=== PATIENT | female | born 1985 | race Caucasian/White ===

== ENCOUNTER 2018-03-11 14:15 | Emergency (ER) | payer OTHER ==
[~2018-03-11] VITALS: Ht 157.5 cm; Wt 65.8 kg
[~2018-03-11 14:15] MED LIST: ACYC800 PO; ALBIPROI INH; ALBU8HFA2 INH; ALBU90I INH; ALBU90OI; ALBU90OI INH; ALBUIS; AMOX500 PO; AZIT250 PO; AZIT500 PO; Bactrim 400-801 EACH PO; CITA20 PO; CRUTCH2 USE; CYCL10 PO; DILAUDID 11 MG/1 ML; DOC250 PO; FLUSAL2505; FLUSAL2505 IH; FLUSAL5005; FLUSAL5005 IH; HYDACE5 PO; HYDGUAL120 PO; IBUP800 PO; KETO30I IV; LEVFLO500 PO; MULVITMINE; MULVITMINE PO; ONDA4ODT IV; OXYACE5T PO; PENVK500 PO; PHENA200 PO; PRED10 PO; PRED20 PO; PREDNISONE PO; PROM25 PO; Pyridium200 MG PO; RANI150 PO; SINGULAIR; SULTRIDS PO; TOBR.3OPSO RIGHTEYE; YAZ; [UNRECOGNIZED DRUG - REMARK]
[2018-03-11] MEDS ORDERED: ALBU90OI INH (14:33)
[2018-03-11] MEDS ORDERED: BUDE6HFA INH (14:34)
[2018-03-11] MEDS ORDERED: Augmentin 875-1 EACH PO (16:53)
== END 2018-03-11 17:21 | disposition home or self-care (01) ==
LOC: ER 14:15
DX: S61.211A Laceration without foreign body of left index finger without damage to nail, initial encounter (principal); L08.9 Local infection of the skin and subcutaneous tissue, unspecified; Z79.899 Other long term (current) drug therapy; J45.909 Unspecified asthma, uncomplicated; F17.200 Nicotine dependence, unspecified, uncomplicated; W45.8XXA Other foreign body or object entering through skin, initial encounter
CPT/HCPCS: 73130; 90471; 90714; 99283

== ENCOUNTER 2018-03-21 16:36 | Emergency (ER) | payer OTHER ==
[~2018-03-21] VITALS: Ht 157.5 cm; Wt 63.5 kg
[~2018-03-21 16:36] MED LIST changes: +Augmentin 875-1 EACH PO; +BUDE6HFA INH; +HYDR1TAB94 PO
[2018-03-21] MEDS ORDERED: Bactrim Ds Tab1 EACH (17:03)
[2018-03-21] MEDS ORDERED: Bactrim Ds Tab1 EACH PO (17:09)
== END 2018-03-21 18:04 | disposition home or self-care (01) ==
LOC: ER 16:36
DX: L08.9 Local infection of the skin and subcutaneous tissue, unspecified (principal); B95.62 Methicillin resistant Staphylococcus aureus infection as the cause of diseases classified elsewhere; J45.909 Unspecified asthma, uncomplicated; F17.210 Nicotine dependence, cigarettes, uncomplicated; Z79.899 Other long term (current) drug therapy; Z79.51 Long term (current) use of inhaled steroids
CPT/HCPCS: 36415; 96365; 99283; J0878; J7030

== ENCOUNTER 2018-07-02 16:23 | Emergency (ER) | payer OTHER ==
[~2018-07-02] VITALS: Ht 157.5 cm; Wt 65.8 kg
[~2018-07-02 16:23] MED LIST changes: +Bactrim Ds Tab1 EACH; +Bactrim Ds Tab1 EACH PO
[2018-07-02] MEDS ORDERED: ALBU90OI61 INH (16:34)
[2018-07-02 19:04] LABS: BASOPHILS ABSOLUTE AUTO 0.05 K/mm3 (0.00-0.23); BASOPHILS PERCENT AUTO 0 % (0-2); EOSINOPHILS ABSOLUTE AUTO 0.22 K/mm3 (0.00-0.68); EOSINOPHILS PERCENT AUTO 2 % (0-6); Hematocrit 44.6 % (33.0-51.0); Hemoglobin 14.7 g/dL (11.5-16.0); IMMATURE GRAN ABSOLUTE AUTO 0.03 K/mm3 (0.00-0.10); IMMATURE GRAN PERCENT AUTO 0 % (0-1); LYMPHOCYTES ABSOLUTE AUTO 2.58 K/mm3 (0.84-5.20); LYMPHOCYTES PERCENT AUTO 22 % (21-46); MONOCYTES ABSOLUTE AUTO 0.51 K/mm3 (0.16-1.47); MONOCYTES PERCENT AUTO 4 % (4-13); Mean Corpuscular HGB 29.8 pg (26.0-34.0); Mean Corpuscular Volume 91 fL (80-100); Mean Platelet Volume 10.1 fL (9.1-12.4); NEUTROPHILS ABSOLUTE AUTO 8.33 K/mm3 (1.96-9.15); NEUTROPHILS PERCENT AUTO 71 % (41-73); Platelet Count 373 K/mm3 (150-400); RDW Coefficient Variation 12.6 % (11.7-14.2); RDW Standard Deviation 41.6 fL (35.1-46.3); Red Blood Cell Count 4.93 M/mm3 (3.80-5.20); White Blood Cell Count 11.72 K/mm3 (4.00-11.30)
[2018-07-02 19:26] LABS: Alanine Aminotransfer (ALT/SGP 22 U/L (12-78); Albumin, Blood 4.1 g/dL (3.4-5.0); Albumin/Globulin Ratio 0.9 (0.8-1.8); Alk Phos 92 U/L (50-136); Anion Gap 8 mmol/L (6-16); Aspartate Aminotrans (AST/SGOT 15 U/L (12-37); Bilirubin, Total 0.5 mg/dL (0.1-1.0); Blood Urea Nitrogen 9 mg/dL (8-24); CO2, Blood 23 mmol/L (21-32); Calcium, Blood 9.4 mg/dL (8.5-10.1); Chloride, Blood 109 mmol/L (98-108); Creatinine, Blood 0.69 mg/dL (0.40-1.00); Globulin, Blood 4.4 g/dL (2.2-4.0); Glomerular Filtration Rate >60 (60-); Glucose, Blood 87 mg/dL (70-99); Sodium, Blood 140 mmol/L (136-145); Total Protein, Blood 8.5 g/dL (6.4-8.2)
[2018-07-02] MEDS ORDERED: Zofran Odt4 MG SL (20:07)
== END 2018-07-02 20:13 | disposition home or self-care (01) ==
LOC: ER 16:23
PROVIDERS: Emergency Medicine
DX: K80.20 Calculus of gallbladder without cholecystitis without obstruction (principal); J45.909 Unspecified asthma, uncomplicated; F17.200 Nicotine dependence, unspecified, uncomplicated; Z79.51 Long term (current) use of inhaled steroids
CPT/HCPCS: 36415; 74176; 80053; 81000; 81025; 85025; 99284-25

== ENCOUNTER 2019-02-10 10:12 | Emergency (ER) | payer OTHER ==
[~2019-02-10] VITALS: Ht 157.5 cm; Wt 65.8 kg
[~2019-02-10 10:12] MED LIST changes: +ALBU90OI61 INH; +IBUP600 PO; +Norco 5-325 Ta1 EACH PO; +Zofran Odt4 MG SL
[2019-02-10] MEDS ORDERED: METH40 PO (10:22)
[2019-02-10 11:22] LABS: Influenza A Negative (NEGATIVE); Influenza B Negative (NEGATIVE)
[2019-02-10] MEDS ORDERED: PRED20 PO (11:47)
[2019-02-10] MEDS ORDERED: ALBU90OI INH (11:47)
[2019-02-10] MEDS ORDERED: BENZ100A PO (11:47)
[2019-02-10] MEDS ORDERED: Flonase 0.05% N16 GM (11:48)
[2019-02-10] MEDS ORDERED: Cheratussin AC118 ML PO (11:48)
== END 2019-02-10 12:07 | disposition home or self-care (01) ==
LOC: ER 10:12
PROVIDERS: Physician Assistant
DX: J45.909 Unspecified asthma, uncomplicated (principal); Z79.899 Other long term (current) drug therapy; F17.210 Nicotine dependence, cigarettes, uncomplicated
CPT/HCPCS: 71046; 87804; 94640; 99283-25

== ENCOUNTER 2019-09-30 10:56 | Emergency (ER) | payer OTHER ==
[~2019-09-30] VITALS: Ht 157.5 cm; Wt 74.8 kg
[~2019-09-30 10:56] MED LIST changes: +BENZ100A PO; +Cheratussin AC118 ML PO; +Flonase 0.05% N16 GM; +METH40 PO
[2019-09-30] MEDS ORDERED: CLON.1 (11:27)
[2019-09-30 11:42] LABS: BASOPHILS ABSOLUTE AUTO 0.08 K/mm3 (0.00-0.23); BASOPHILS PERCENT AUTO 1 % (0-2); EOSINOPHILS ABSOLUTE AUTO 0.86 K/mm3 (0.00-0.68); EOSINOPHILS PERCENT AUTO 13 % (0-6); Hematocrit 44.2 % (33.0-51.0); Hemoglobin 14.3 g/dL (11.5-16.0); IMMATURE GRAN ABSOLUTE AUTO 0.01 K/mm3 (0.00-0.10); IMMATURE GRAN PERCENT AUTO 0 % (0-1); LYMPHOCYTES ABSOLUTE AUTO 2.22 K/mm3 (0.84-5.20); LYMPHOCYTES PERCENT AUTO 33 % (21-46); MONOCYTES ABSOLUTE AUTO 0.48 K/mm3 (0.16-1.47); MONOCYTES PERCENT AUTO 7 % (4-13); Mean Corpuscular HGB 29.7 pg (26.0-34.0); Mean Corpuscular HGB Conc 32.4 g/dL (31.5-36.5); Mean Corpuscular Volume 92 fL (80-100); NEUTROPHILS ABSOLUTE AUTO 3.05 K/mm3 (1.96-9.15); NEUTROPHILS PERCENT AUTO 46 % (41-73); RDW Coefficient Variation 11.9 % (11.7-14.2); RDW Standard Deviation 39.9 fL (35.1-46.3); Red Blood Cell Count 4.81 M/mm3 (3.80-5.20)
[2019-09-30 12:00] LABS: Mean Platelet Volume 11.6 fL (9.1-12.4); Platelet Count 200 K/mm3 (150-400)
[2019-09-30 12:01] LABS: Alanine Aminotransfer (ALT/SGP 18 U/L (12-78); Albumin, Blood 3.3 g/dL (3.4-5.0); Albumin/Globulin Ratio 0.9 (0.8-1.8); Alk Phos 64 U/L (50-136); Anion Gap 5 mmol/L (6-16); Aspartate Aminotrans (AST/SGOT 20 U/L (12-37); Bilirubin, Total 0.3 mg/dL (0.1-1.0); Blood Urea Nitrogen 12 mg/dL (8-24); Bun/Creatinine Ratio 17.1 (12.0-20.0); CO2, Blood 24 mmol/L (21-32); Calcium, Blood 9.2 mg/dL (8.5-10.1); Chloride, Blood 112 mmol/L (98-108); Globulin, Blood 3.7 g/dL (2.2-4.0); Glomerular Filtration Rate >60 (60-); Glucose, Blood 89 mg/dL (70-99); Potassium, Blood 4.5 mmol/L (3.5-5.5); Sodium, Blood 141 mmol/L (136-145)
[2019-09-30] MEDS ORDERED: CITRATE OF MAG296 ML PO (13:05)
== END 2019-09-30 13:13 | disposition home or self-care (01) ==
LOC: ER 10:56
PROVIDERS: Emergency Medicine
DX: K59.00 Constipation, unspecified (principal); J45.909 Unspecified asthma, uncomplicated; F17.210 Nicotine dependence, cigarettes, uncomplicated; Z79.899 Other long term (current) drug therapy; Z87.442 Personal history of urinary calculi
CPT/HCPCS: 36415; 80053; 83605; 85025; 99283

== ENCOUNTER → 2020-03-16 | Outpatient (CLI) | payer OTHER ==
[~2020-03-16] MED LIST changes: +CITRATE OF MAG296 ML PO; +CLON.1
== END | disposition home or self-care (01) ==
LOC: LAB 17:50 → LAB SHORT 17:50
DX: L02.01 Cutaneous abscess of face (principal)
CPT/HCPCS: 87070; 87075; 87077; 87147; 87186; 87205

== ENCOUNTER → 2024-07-15 | Outpatient (CLI) | payer OTHER | LOC: LAB 13:20 → LAB SHORT 13:20 → PLD 13:20 | DX: R21 Rash and other nonspecific skin eruption (principal) | CPT/HCPCS: 88312 ==

== ENCOUNTER 2024-08-22 17:22 | Inpatient (IN) | payer OTHER ==
[~2024-08-22] VITALS: Ht 157.5 cm; Wt 65.0 kg
[2024-08-22 18:26] LABS: BASOPHILS ABSOLUTE AUTO 0.09 K/mm3 (0.00-0.23); BASOPHILS PERCENT AUTO 1 % (0-2); EOSINOPHILS ABSOLUTE AUTO 0.33 K/mm3 (0.00-0.68); EOSINOPHILS PERCENT AUTO 2 % (0-6); Hematocrit 45.4 % (33.0-51.0); Hemoglobin 15.1 g/dL (11.5-16.0); IMMATURE GRAN ABSOLUTE AUTO 0.09 K/mm3 (0.00-0.10); IMMATURE GRAN PERCENT AUTO 1 % (0-1); LYMPHOCYTES ABSOLUTE AUTO 1.01 K/mm3 (0.84-5.20); LYMPHOCYTES PERCENT AUTO 6 % (21-46); MONOCYTES ABSOLUTE AUTO 1.43 K/mm3 (0.16-1.47); MONOCYTES PERCENT AUTO 8 % (4-13); Mean Corpuscular HGB 28.8 pg (26.0-34.0); Mean Corpuscular HGB Conc 33.3 g/dL (31.5-36.5); Mean Corpuscular Volume 87 fL (80-100); Mean Platelet Volume 9.7 fL (9.1-12.4); NEUTROPHILS ABSOLUTE AUTO 15.49 K/mm3 (1.96-9.15); NEUTROPHILS PERCENT AUTO 84 % (41-73); Platelet Count 432 K/mm3 (150-400); RDW Coefficient Variation 13.1 % (11.7-14.2); RDW Standard Deviation 41.4 fL (35.1-46.3); Red Blood Cell Count 5.25 M/mm3 (3.80-5.20); White Blood Cell Count 18.44 K/mm3 (4.00-11.30)
[2024-08-22 18:49] LABS: Albumin, Blood 2.9 g/dL (3.4-5.0); Albumin/Globulin Ratio 0.5 (0.8-1.8); Bilirubin, Total 0.9 mg/dL (0.1-1.0); Calcium, Blood 9.4 mg/dL (8.5-10.1); Creatinine, Blood 0.89 mg/dL (0.40-1.00); Globulin, Blood 5.3 g/dL (2.2-4.0); Potassium, Blood 3.8 mmol/L (3.5-5.5); Total Protein, Blood 8.2 g/dL (6.4-8.2)
[2024-08-22] MEDS ORDERED: Vancomycin HCL 2,000 MG in NS 520 ML IV ONE (22:55)
[2024-08-22] MEDS ORDERED: NS 1,000 ML IV SCH (23:00)
[2024-08-22] MEDS ORDERED: Acetaminophen 500 MG Tab PO ONE (23:05)
[2024-08-22] MEDS ORDERED: Erythromycin 0.5% Opth Oint 1 gm BOTHEYES ONE (23:05)
[2024-08-22] MEDS ORDERED: Ibuprofen 600 MG Tab PO ONE (23:05)
[2024-08-22] MEDS ORDERED: FLU VACC TS2024-25(6MOS UP)/PF 45 MCG/0.5 ML SYRINGE IM SCH (23:45)
[2024-08-22] MEDS ORDERED: Ketorolac Tromethamine 30mg Vial IV PRN (23:45)
[2024-08-22] MEDS ORDERED: FentaNYL Citrate 50 MCG/ML 2 ML Injection IV PRN (23:45)
[2024-08-23] MEDS ORDERED: MethylPREDNISolone Sod Succ 125 MG Vial IV SCH
[2024-08-23] MEDS ORDERED: Ondansetron HCl 2 MG / ML 2ML Vial IV PRN (00:05)
[2024-08-23] MEDS ORDERED: NS 1,000 ML IV SCH (00:05)
[2024-08-23] MEDS ORDERED: Ampicillin Sod/Sulbactam Sod 3 GM in NS 100 ML IV SCH (00:18)
[2024-08-23 02:08] LABS: BASOPHILS ABSOLUTE AUTO 0.08 K/mm3 (0.00-0.23); BASOPHILS PERCENT AUTO 1 % (0-2); EOSINOPHILS ABSOLUTE AUTO 0.52 K/mm3 (0.00-0.68); EOSINOPHILS PERCENT AUTO 3 % (0-6); Hematocrit 40.2 % (33.0-51.0); Hemoglobin 13.3 g/dL (11.5-16.0); IMMATURE GRAN ABSOLUTE AUTO 0.12 K/mm3 (0.00-0.10); IMMATURE GRAN PERCENT AUTO 1 % (0-1); LYMPHOCYTES ABSOLUTE AUTO 1.44 K/mm3 (0.84-5.20); LYMPHOCYTES PERCENT AUTO 9 % (21-46); MONOCYTES ABSOLUTE AUTO 1.25 K/mm3 (0.16-1.47); MONOCYTES PERCENT AUTO 8 % (4-13); Mean Corpuscular HGB 28.8 pg (26.0-34.0); Mean Corpuscular HGB Conc 33.1 g/dL (31.5-36.5); Mean Corpuscular Volume 87 fL (80-100); NEUTROPHILS ABSOLUTE AUTO 13.22 K/mm3 (1.96-9.15); NEUTROPHILS PERCENT AUTO 80 % (41-73); Platelet Count 410 K/mm3 (150-400); RDW Coefficient Variation 13.1 % (11.7-14.2); RDW Standard Deviation 41.2 fL (35.1-46.3); Red Blood Cell Count 4.62 M/mm3 (3.80-5.20); White Blood Cell Count 16.63 K/mm3 (4.00-11.30)
[2024-08-23] MEDS ORDERED: Tobramycin/Dexameth Opth Susp 2.5 ML BOTHEYES SCH (02:41)
[2024-08-23 03:32] LABS: Albumin, Blood 2.8 g/dL (3.4-5.0); Albumin/Globulin Ratio 0.6 (0.8-1.8); Bilirubin, Total 0.7 mg/dL (0.1-1.0); Bun/Creatinine Ratio 19.7 (12.0-20.0); Calcium, Blood 8.7 mg/dL (8.5-10.1); Creatinine, Blood 0.91 mg/dL (0.40-1.00); Globulin, Blood 4.9 g/dL (2.2-4.0); Potassium, Blood 3.3 mmol/L (3.5-5.5); Total Protein, Blood 7.7 g/dL (6.4-8.2)
[2024-08-23] MEDS ORDERED: Potassium Chl 20MEQ/Water100ML 100 ML IV STA (06:51)
[2024-08-23] MEDS ORDERED: Enoxaparin 40 MG/0.4 ML SYR SC SCH (09:00)
[2024-08-23] MEDS ORDERED: Methadone HCL 10 MG TAB PO SCH (12:00)
[2024-08-23] MEDS ORDERED: Vancomycin HCL 1,000 MG in NS 250 ML IV SCH (14:00)
[2024-08-23 14:32] VITALS: BP 132/85
[2024-08-23] MEDS ORDERED: ALBU90OI INH ×2 (14:45)
[2024-08-23] MEDS ORDERED: NS 250 ML IV PRN (17:35)
[2024-08-23] MEDS ORDERED: Nicotine 21 MG PATCH TOP SCH (18:05)
[2024-08-23] MEDS ORDERED: OxyCODONE 5 mg/Acetamin 325 mg TABLET PO PRN (19:30)
[2024-08-23] MEDS ORDERED: LORazepam 0.5 MG Tab PO PRN (19:30)
[2024-08-23 19:44] VITALS: BP 120/73
--- NOTE | 2024-08-23 20:10 | NUR ---
SHIFT SUMMARY- PT ADMITTED THROUGH THE ED, ATTEMPTED TO CALL CONSULT REQUEST, DERMATOLOGY OFFICE CLOSED. PT, C/O PAIN ON ARRIVAL TO MED FLOOR MEDICATED WITH IV TORADOL WITH TASHA EFFECT, CALLED ABOUT A TOPICAL CREAM TO HELP WITH THE PAIN THE SKIN WAS WEEPING AND IS STARTING TO DRY IN PLACES. THE LOWER LAYERS ARE TIGHT AND SPLITTING CAUSING THE BURNING PAIN. RECIEVED ORDER FOR BACTROBAN OINTMENT. PT STATED THE PAIN WAS A LOT BETTER AFTER THE OINTMENT. WHEN DINNER ARRIVED AND SHE ATE FOOD THE MOVEMENT OF HER FACE CAUSED HER PAIN TO FLARE AGAIN. CALLED DR ACHARYA AND RECIEVED ORDER FOR PERCOCET AND SOMETHING FOR ANXIETY. NIGHT RN AWARE, ORDERS PLACED AT THE TIME OF REPORT. PT IN BED AT THE TIME OF BEDSIDE REPORT, SHE IS IN PAIN USING A COOL CLOTH TO HELP TO COOL THE BURNING OF HER FACE. CALLED DR ACHARYA AFTER BEDSIDE REPORT.
[2024-08-23] MEDS ORDERED: Lactobacil 2-S.Thermo-Bifido 1 1 Cap PO SCH (21:00)
[2024-08-23] MEDS ORDERED: Mupirocin 2% Ointment 22 GM TOP SCH (21:00)
[2024-08-24 02:35] VITALS: BP 131/91
[2024-08-24 06:40] LABS: BASOPHILS ABSOLUTE AUTO 0.06 K/mm3 (0.00-0.23); BASOPHILS PERCENT AUTO 0 % (0-2); EOSINOPHILS ABSOLUTE AUTO 0.04 K/mm3 (0.00-0.68); EOSINOPHILS PERCENT AUTO 0 % (0-6); Hematocrit 36.9 % (33.0-51.0); Hemoglobin 12.1 g/dL (11.5-16.0); IMMATURE GRAN ABSOLUTE AUTO 0.08 K/mm3 (0.00-0.10); IMMATURE GRAN PERCENT AUTO 0 % (0-1); LYMPHOCYTES ABSOLUTE AUTO 2.37 K/mm3 (0.84-5.20); LYMPHOCYTES PERCENT AUTO 13 % (21-46); MONOCYTES ABSOLUTE AUTO 1.33 K/mm3 (0.16-1.47); MONOCYTES PERCENT AUTO 8 % (4-13); Mean Corpuscular HGB 28.8 pg (26.0-34.0); Mean Corpuscular HGB Conc 32.8 g/dL (31.5-36.5); Mean Corpuscular Volume 88 fL (80-100); Mean Platelet Volume 9.9 fL (9.1-12.4); NEUTROPHILS ABSOLUTE AUTO 13.94 K/mm3 (1.96-9.15); NEUTROPHILS PERCENT AUTO 78 % (41-73); Platelet Count 451 K/mm3 (150-400); RDW Coefficient Variation 13.2 % (11.7-14.2); RDW Standard Deviation 42.5 fL (35.1-46.3); White Blood Cell Count 17.82 K/mm3 (4.00-11.30)
[2024-08-24 07:10] LABS: Bun/Creatinine Ratio 25.4 (12.0-20.0); Calcium, Blood 8.7 mg/dL (8.5-10.1); Creatinine, Blood 0.67 mg/dL (0.40-1.00); Potassium, Blood 3.3 mmol/L (3.5-5.5)
[2024-08-24] MEDS ORDERED: Mometasone/Formoterol MDI 200/5 mcg 13 GM INH SCH (07:40)
[2024-08-24] MEDS ORDERED: Albuterol HFA200 ACT/6.7 GM INH INH PRN (07:40)
[2024-08-24] MEDS ORDERED: Potassium Chl 20MEQ/Water100ML 100 ML IV STA (07:43)
--- NOTE | 2024-08-24 07:53 | NUR ---
SHIFT SUMMARY PT IS A&OX4, PLEASANT AND COOPERATIVE WITH CARES. VSS ON RA. PER TELEMETRY PT IS SR @ 87. C/O FACIAL PAIN MEDICATED WITH PRN 5 MG PERCOCET, AND 0.5 MG PO ATIVAN. PT IS ANXIOUS, AND STATES AT HOME SHE SMOKES MARIJUANA TO HELP WITH HER ANXIETY. TOLERATING A REG DIET, GOOD APPETITE. PT IS INDEPENDENT IN ROOM/BR. S.O. AT BEDSIDE T/O NOC, ATTENTIVE TO PT. CRITICAL LAB CAME BACK WITH POSITIVE BLOOD CULTURES. DR BRADLEY MADE AWARE. CONTACT PRECAUTIONS MAINTAINED FOR HX OF MRSA. BED IN LOWEST POSITION, CALL LIGHT WITHIN REACH.
[2024-08-24 08:26] VITALS: BP 121/84
[2024-08-24] MEDS ORDERED: Vancomycin HCL 1,000 MG in NS 250 ML IV SCH (10:30)
[2024-08-24] MEDS ORDERED: BREYNA 160-4.10.3 GM INH ×2 (15:15)
[2024-08-24 15:34] VITALS: BP 116/77
--- NOTE | 2024-08-24 16:09 | NUR ---
PT A/OX4, PLEASANT AND COOPERATIVE, UP IND IN HER ROOM. THE PT WAS MEDICATED FOR PAIN X2 SO FAR THIS SHIFT. PT WAS MEDICATED FOR ANXIETY X1. DR. LEONARD RETAIL LEASING AGENT WAS IN TO SEE THE PT TODAY WOUND CX'S WERE OBTAINED AND SENT TO LAB. PT HAS BEEN APPLYING BACTRAICIN OINTMENT TOLERATD TO HER FACE. PT HAS COURSE LUNG SOUNDS WITH A LOOSE COUGH. PT IS BREATHING EASILY ON RA AT THIS TIME. CALL LIGHT IN REACH.
[2024-08-24 19:54] VITALS: BP 114/89
[2024-08-24] MEDS ORDERED: ValACYClovir HCL 500 MG Tab PO SCH (20:00)
[2024-08-25 04:51] VITALS: BP 127/83
[2024-08-25 05:20] LABS: BASOPHILS PERCENT AUTO 1 % (0-2); EOSINOPHILS ABSOLUTE AUTO 0.42 K/mm3 (0.00-0.68); EOSINOPHILS PERCENT AUTO 5 % (0-6); Hematocrit 37.8 % (33.0-51.0); Hemoglobin 12.3 g/dL (11.5-16.0); IMMATURE GRAN ABSOLUTE AUTO 0.07 K/mm3 (0.00-0.10); IMMATURE GRAN PERCENT AUTO 1 % (0-1); LYMPHOCYTES ABSOLUTE AUTO 2.46 K/mm3 (0.84-5.20); LYMPHOCYTES PERCENT AUTO 30 % (21-46); MONOCYTES ABSOLUTE AUTO 0.76 K/mm3 (0.16-1.47); MONOCYTES PERCENT AUTO 9 % (4-13); Mean Corpuscular HGB 28.9 pg (26.0-34.0); Mean Corpuscular HGB Conc 32.5 g/dL (31.5-36.5); Mean Corpuscular Volume 89 fL (80-100); Mean Platelet Volume 10.1 fL (9.1-12.4); NEUTROPHILS ABSOLUTE AUTO 4.27 K/mm3 (1.96-9.15); NEUTROPHILS PERCENT AUTO 53 % (41-73); Platelet Count 426 K/mm3 (150-400); RDW Coefficient Variation 13.3 % (11.7-14.2); RDW Standard Deviation 43.6 fL (35.1-46.3); Red Blood Cell Count 4.25 M/mm3 (3.80-5.20); White Blood Cell Count 8.08 K/mm3 (4.00-11.30)
[2024-08-25 06:05] LABS: Calcium, Blood 8.7 mg/dL (8.5-10.1); Creatinine, Blood 0.7 mg/dL (0.40-1.00); Potassium, Blood 3.8 mmol/L (3.5-5.5)
--- NOTE | 2024-08-25 06:05 | NUR ---
SHIFT SUMMARY: PT IS ALERT AND ORIENTED. PT IS CALM AND COOPERATIVE WITH CARE. PT IS INDEPENDENT IN THE ROOM. PT CALLS APPROPRIATELY. PT REPORTS PAIN AND ANXIETY ON SEVERAL OCCASIONS, MEDICATING PER EMAR. PT DENIES NAUSEA, VOMITING, AND SOB. PT SLEPT MUCH OF THE NIGHT WHEN NOT DISTURBED. NO ACUTE CHANGES OR COMPLICATIONS THIS SHIFT. BED IN LOW POSITION, CALL LIGHT WITHIN REACH. WILL CONTINUE TO MONITOR.
[2024-08-25 07:21] VITALS: BP 112/71
[2024-08-25 10:31] LABS: Vancomycin, Trough 21.1 ug/mL (5.0-10.0)
[2024-08-25] MEDS ORDERED: Vancomycin HCL 750 MG in NS 250 ML IV SCH (11:00)
[2024-08-25] MEDS ORDERED: CeFAZolin Sodium 2,000 MG in NS 100 ML IV SCH (12:00)
[2024-08-25 14:32] VITALS: BP 115/79
--- NOTE | 2024-08-25 18:06 | NUR ---
END OF SHIFT SUMMARY: A&Ox4. PLEASANT AND COOPERATIVE WITH CARE. CALLS APPROPRIATELY AND IS ABLE TO ADVOCATE NEEDS EFFECTIVELY. AMBULATES INDEPENDENTLY WITHIN ROOM. CONTINENT OF BOWEL AND BLADDER. BM TODAY. MEDS WHOLE WITH FLUIDS. PAIN SIGNIFICANT IN LESIONS ON FACE, TRUNK AND EXTREMITIES. CRITICAL VANCO LEVEL RESULTING IN DOSE CHANGE. PATIENT REPORTS FEELING WELL TODAY. APPROPRIATE INTAKE AND OUTPUT. VSS. BED IN LOWEST POSITION. CALL LIGHT WITHIN REACH. ALL NEEDS MET. REPORT TO ONCOMING NURSE.
[2024-08-25 19:37] VITALS: BP 115/79
[2024-08-26 03:05] VITALS: BP 118/90
--- NOTE | 2024-08-26 04:22 | NUR ---
SHIFT SUMMARY PATIENT IS ALERT AND ORIENTED. PATIENT HAS BEEN COOPERATIVE AND PLEASANT WITH CARE. PATIENT HAS HAD NO ACUTE EVENTS THIS SHIFT. ABX INFUSED ORDERED. PATIENT REPORTS FACIAL LESIONS IMPROVING. PATIENT HAS REPORTED PAIN THIS SHIFT AND MEDICATED PER EMAR. PATIENTS PAIN HAS LESSENED THIS SHIFT PER PATIENT. PATIENT HAS HAD NO COMPLAINTS OF SOB, NAUSEA, OR VOMITTING THIS SHIFT. BED IN LOCKED AND LOWEST POSITION. CALL LIGHT IN PLACE. WILL MONITOR UNTIL SHIFT CHANGE.
[2024-08-26 06:42] LABS: BASOPHILS ABSOLUTE AUTO 0.08 K/mm3 (0.00-0.23); BASOPHILS PERCENT AUTO 1 % (0-2); EOSINOPHILS ABSOLUTE AUTO 0.46 K/mm3 (0.00-0.68); EOSINOPHILS PERCENT AUTO 3 % (0-6); Hematocrit 34.5 % (33.0-51.0); Hemoglobin 11.4 g/dL (11.5-16.0); IMMATURE GRAN ABSOLUTE AUTO 0.29 K/mm3 (0.00-0.10); IMMATURE GRAN PERCENT AUTO 2 % (0-1); LYMPHOCYTES ABSOLUTE AUTO 1.47 K/mm3 (0.84-5.20); LYMPHOCYTES PERCENT AUTO 11 % (21-46); MONOCYTES ABSOLUTE AUTO 0.45 K/mm3 (0.16-1.47); MONOCYTES PERCENT AUTO 3 % (4-13); Mean Corpuscular HGB 28.8 pg (26.0-34.0); Mean Corpuscular Volume 87 fL (80-100); Mean Platelet Volume 9.9 fL (9.1-12.4); NEUTROPHILS ABSOLUTE AUTO 10.61 K/mm3 (1.96-9.15); NEUTROPHILS PERCENT AUTO 79 % (41-73); Platelet Count 407 K/mm3 (150-400); RDW Coefficient Variation 12.7 % (11.7-14.2); RDW Standard Deviation 40.6 fL (35.1-46.3); Red Blood Cell Count 3.96 M/mm3 (3.80-5.20); White Blood Cell Count 13.36 K/mm3 (4.00-11.30)
[2024-08-26 07:07] LABS: Bun/Creatinine Ratio 23.1 (12.0-20.0); Calcium, Blood 8.2 mg/dL (8.5-10.1); Creatinine, Blood 0.69 mg/dL (0.40-1.00); Potassium, Blood 3.4 mmol/L (3.5-5.5)
[2024-08-26 08:17] VITALS: BP 121/78
[2024-08-26 10:59] LABS: Vancomycin, Trough 19.3 ug/mL (5.0-10.0)
[2024-08-26 15:15] VITALS: BP 131/83
--- NOTE | 2024-08-26 16:45 | NUR ---
SHIFT SUMMARY: PATIENT A/OX4, PLEASANT AND COOPERATIVE c CARE. PATIENT DENIES CP/PRESSURE, SOB, N/V AND DIZZINESS. PATIENT REPORTS PAIN TO FACE, MEDICATED PER EMAR c GOOD EFFECT. PATIENT RECEIVED IV ABX/SCHEDULED MEDS PER EMAR. PATIENT HAS GREAT APPETITE, CONTINENT OF BLADDER, AMBULATES TO BATHROOM INDEPENDENTLY T/O SHIFT. VITALS SIGNS REVIEWED. PATIENT HAS NO COMPLAINTS OR DENIES NEW CONCERNED THIS SHIFT. CALL LIGHT IN REACH.
[2024-08-26 19:26] VITALS: BP 106/70
[2024-08-27 04:27] VITALS: BP 125/80
--- NOTE | 2024-08-27 05:06 | NUR ---
SHIFT SUMMARY PATIENT IS ALERT AND ORIENTED. PATIENT HAS HAD NO ACUTE EVENTS THIS SHIFT. VITAL SIGNS REVIEWED. PATIENT HAS HAD PAIN IN FACIAL LESIONS THIS SHIFT. MEDICATED PER EMAR. PATIENT HAS HAD SOME ANXIETY THIS SHIFT AND MEDICATED PER EMAR. PATIENT HAS HAD NO SOB, NAUSEA, OR VOMITTING THIS SHIFT. PATIENT HAS SLEPT MOST OF SHIFT. BED IN LOCKED AND LOWEST POSITION. CALL LIGHT IN PLACE. WILL MONTIOR UNTIL SHIFT CHANGE.
[2024-08-27 06:06] LABS: BASOPHILS PERCENT AUTO 1 % (0-2); Bun/Creatinine Ratio 19.3 (12.0-20.0); Calcium, Blood 8.9 mg/dL (8.5-10.1); Creatinine, Blood 0.72 mg/dL (0.40-1.00); EOSINOPHILS ABSOLUTE AUTO 1.63 K/mm3 (0.00-0.68); EOSINOPHILS PERCENT AUTO 18 % (0-6); Hematocrit 38.9 % (33.0-51.0); Hemoglobin 13.1 g/dL (11.5-16.0); IMMATURE GRAN ABSOLUTE AUTO 0.16 K/mm3 (0.00-0.10); IMMATURE GRAN PERCENT AUTO 2 % (0-1); LYMPHOCYTES ABSOLUTE AUTO 2.15 K/mm3 (0.84-5.20); LYMPHOCYTES PERCENT AUTO 24 % (21-46); MONOCYTES ABSOLUTE AUTO 0.41 K/mm3 (0.16-1.47); MONOCYTES PERCENT AUTO 5 % (4-13); Mean Corpuscular HGB 29.2 pg (26.0-34.0); Mean Corpuscular HGB Conc 33.7 g/dL (31.5-36.5); Mean Corpuscular Volume 87 fL (80-100); NEUTROPHILS ABSOLUTE AUTO 4.65 K/mm3 (1.96-9.15); NEUTROPHILS PERCENT AUTO 51 % (41-73); NRBC ABSOLUTE 0.02 K/mm3 (0.00-0.02); NRBC Auto 0.2 /100 WBC (0.0-0.2); Platelet Count 428 K/mm3 (150-400); Potassium, Blood 4.5 mmol/L (3.5-5.5); RDW Coefficient Variation 12.8 % (11.7-14.2); RDW Standard Deviation 40.7 fL (35.1-46.3); Red Blood Cell Count 4.49 M/mm3 (3.80-5.20)
[2024-08-27 07:09] VITALS: BP 127/78
[2024-08-27 15:50] VITALS: BP 111/82
--- NOTE | 2024-08-27 16:27 | NUR ---
SHIFT SUMMARY: PATIENT HAS HAD NO NEW ACUTE CHANGES THIS SHIFT. PATIENT A/OX4, PLEASANT AND COOPERATIVE c CARE. PATIENT MEDICATED FOR PAIN AND ANXIETY PER EMAR c GOOD EFFECT. PATIENT RECEIVED IV ABX/SCHEDULED MEDS PER EMAR. PATIENT HAD SHOWER AND LINEN CHANGED THIS SHIFT. PATIENT HAS GREAT APPETITE, CONTINENT OF BLADDER, AMBULATES TO BATHROOM T/O SHIFT. VITAL SIGNS REVIEWED. CALL LIGHT IN REACH.
[2024-08-27 19:25] VITALS: BP 141/89
[2024-08-28 01:44] LABS: HSV 1 SUBTYPE BY PCR Not Detected; HSV 2 SUBTYPE BY PCR Not Detected; HSV SUBTYPE SOURCE FACE
--- NOTE | 2024-08-28 03:26 | NUR ---
SUMMARY- NO NEW ISSUES. PT DISCOMFORT MANAGED WELL. PT HAS BEEN RESTING COMFORTABLY. PT HAS BEEN EATING AND DRINKING. PT VOIDING WELL. CALL LIGHT IN REACH.
[2024-08-28 03:46] VITALS: BP 136/86
[2024-08-28] MEDS ORDERED: OxyCODONE 5 mg/Acetamin 325 mg TABLET PO PRN (07:45)
[2024-08-28 08:01] LABS: BASOPHILS ABSOLUTE AUTO 0.06 K/mm3 (0.00-0.23); BASOPHILS PERCENT AUTO 1 % (0-2); EOSINOPHILS ABSOLUTE AUTO 0.97 K/mm3 (0.00-0.68); EOSINOPHILS PERCENT AUTO 8 % (0-6); Hematocrit 39.9 % (33.0-51.0); Hemoglobin 13.5 g/dL (11.5-16.0); IMMATURE GRAN ABSOLUTE AUTO 0.13 K/mm3 (0.00-0.10); IMMATURE GRAN PERCENT AUTO 1 % (0-1); LYMPHOCYTES ABSOLUTE AUTO 2.19 K/mm3 (0.84-5.20); LYMPHOCYTES PERCENT AUTO 18 % (21-46); MONOCYTES ABSOLUTE AUTO 0.64 K/mm3 (0.16-1.47); MONOCYTES PERCENT AUTO 5 % (4-13); Mean Corpuscular HGB Conc 33.8 g/dL (31.5-36.5); Mean Corpuscular Volume 86 fL (80-100); Mean Platelet Volume 9.5 fL (9.1-12.4); NEUTROPHILS ABSOLUTE AUTO 8.13 K/mm3 (1.96-9.15); NEUTROPHILS PERCENT AUTO 67 % (41-73); Platelet Count 521 K/mm3 (150-400); RDW Coefficient Variation 12.9 % (11.7-14.2); RDW Standard Deviation 39.8 fL (35.1-46.3); Red Blood Cell Count 4.66 M/mm3 (3.80-5.20); White Blood Cell Count 12.12 K/mm3 (4.00-11.30)
[2024-08-28 08:10] VITALS: BP 139/88
[2024-08-28 08:17] LABS: Bun/Creatinine Ratio 20.9 (12.0-20.0); Calcium, Blood 9.3 mg/dL (8.5-10.1); Creatinine, Blood 0.67 mg/dL (0.40-1.00); Potassium, Blood 4.4 mmol/L (3.5-5.5)
[2024-08-28 15:18] LABS: VARICELLA-ZOSTER VIRUS BY PCR Not Detected; VARICELLA-ZOSTER VIRUS SOURCE FACE
[2024-08-28 15:30] VITALS: BP 116/78
--- NOTE | 2024-08-28 16:52 | NUR ---
SHIFT SUMMARY: PATIENT HAS NO NEW ACUTE CHANGES THIS SHIFT. PATIENT A/OX4, PLEASANT AND COOPERATIVE c CARE. PATIENT MEDICATED FOR PAIN AND ANXIETY PER EMAR c GOOD EFFECT. PATIENT RECEIVED IV ABX/SCHEDULED MEDS PER EMAR. PATIENT HAS GREAT APPETITE, CONTINENT OF BLADDER, AMBULATES TO BATHROOM T/O SHIFT. PATIENT EXPRESSESS WOULD LIKE TO GO HOME TOMORROW. PATIENT RESTING IN BED ON/OFF T/O SHIFT. VITAL SIGNS REVIEWED. CALL LIGHT IN REACH.
[2024-08-28 19:36] VITALS: BP 124/79
[2024-08-29 03:04] VITALS: BP 115/88
--- NOTE | 2024-08-29 06:06 | NUR ---
SHIFT SUMMARY: BETHANIE IS A&OX4. VSS, NO ACUTE EVENTS OVERNIGHT. SHE REPORTS MINIMAL PAIN MANAGEMENT WITH MEDICATIONS PER MAR, IS TOLERATING PO INTAKE WELL, AND IS INDEPENDENT IN THE ROOM. IV TO RIGHT UPPER ARM PATENT. SHE IS LYING IN BED WITH THE CALL LIGHT IN REACH, BED IN LOWEST POSITION. PT DENIES ANY DIFFICULTY WITH ELIMINATION. WILL GIVE REPORT TO DAY SHIFT RN.
[2024-08-29 06:17] LABS: BASOPHILS ABSOLUTE AUTO 0.09 K/mm3 (0.00-0.23); BASOPHILS PERCENT AUTO 1 % (0-2); EOSINOPHILS ABSOLUTE AUTO 0.63 K/mm3 (0.00-0.68); EOSINOPHILS PERCENT AUTO 6 % (0-6); Hematocrit 45.8 % (33.0-51.0); Hemoglobin 14.8 g/dL (11.5-16.0); IMMATURE GRAN ABSOLUTE AUTO 0.12 K/mm3 (0.00-0.10); IMMATURE GRAN PERCENT AUTO 1 % (0-1); LYMPHOCYTES ABSOLUTE AUTO 1.92 K/mm3 (0.84-5.20); LYMPHOCYTES PERCENT AUTO 18 % (21-46); MONOCYTES ABSOLUTE AUTO 0.57 K/mm3 (0.16-1.47); MONOCYTES PERCENT AUTO 5 % (4-13); Mean Corpuscular HGB 29.1 pg (26.0-34.0); Mean Corpuscular HGB Conc 32.3 g/dL (31.5-36.5); Mean Corpuscular Volume 90 fL (80-100); NEUTROPHILS ABSOLUTE AUTO 7.58 K/mm3 (1.96-9.15); NEUTROPHILS PERCENT AUTO 70 % (41-73); RDW Coefficient Variation 13.2 % (11.7-14.2); RDW Standard Deviation 43.1 fL (35.1-46.3); Red Blood Cell Count 5.08 M/mm3 (3.80-5.20); White Blood Cell Count 10.91 K/mm3 (4.00-11.30)
[2024-08-29 06:36] LABS: Bun/Creatinine Ratio 19.4 (12.0-20.0); Creatinine, Blood 0.78 mg/dL (0.40-1.00); Potassium, Blood 4.8 mmol/L (3.5-5.5)
[2024-08-29 07:04] LABS: Mean Platelet Volume 9.4 fL (9.1-12.4)
[2024-08-29 07:05] LABS: Platelet Count 471 K/mm3 (150-400)
[2024-08-29 07:43] VITALS: BP 117/94
[2024-08-29] MEDS ORDERED: CEFTRIAXONE2 G1 IV ×2 (13:41)
[2024-08-29] MEDS ORDERED: LACT ×2 (13:41)
--- NOTE | 2024-08-29 15:48 | NUR ---
DISCHARGE SUMMARY PT DC THIS SHIFT. DC INSTRUCTION GONE OVER WITH PT. PT NOTIFIED OF NEEDING TO GO TO [facility] AT 0930 EVERY MORNING FOR THE NEXT 5DAYS. WHOM STATED UNDERSTANDING OF DC ORDERS. PT WAS TAKEN DOWN IN WHEELCHAIR TO PRIVATE VEHICLE BY THIS NURSE.
== END 2024-08-29 15:32 | disposition home or self-care (01) | DRG 872 ==
LOC: ER 17:22 → ERHOLD 23:56 → MEDS 23:56
PROVIDERS: Dermatology; Physician Assistant; Student in an Organized Health Care Education/Training Program; ADMIT Internal Medicine
DX: A40.0 Sepsis due to streptococcus, group A (principal); L03.211 Cellulitis of face; A41.01 Sepsis due to Methicillin susceptible Staphylococcus aureus; J45.909 Unspecified asthma, uncomplicated; G89.29 Other chronic pain; Z87.442 Personal history of urinary calculi; F17.210 Nicotine dependence, cigarettes, uncomplicated; E87.6 Hypokalemia; H10.9 Unspecified conjunctivitis; F11.11 Opioid abuse, in remission; R91.1 Solitary pulmonary nodule; L01.00 Impetigo, unspecified; L20.9 Atopic dermatitis, unspecified
CPT/HCPCS: 36415; 71045; 80048; 80053; 80202; 83605; 83880; 85025; 85651; 87040; 87077; 87147; 87186; 87529; 87798; 93005; 93010; 94640; 94664; 94760; 94762; 99284-25; A9270; J0295; J0690; J1885; J2919; J3010; J3370; J3480; J7030; J7040; J7050

== ENCOUNTER 2024-08-30 02:47 | Day surgery (SDC) | payer OTHER ==
[~2024-08-30 02:47] MED LIST changes: +BREYNA 160-4.10.3 GM INH; +CEFTRIAXONE2 G1 IV; +LACT
[2024-08-30] MEDS ORDERED: CefTRIAXone Sodium 2,000 MG in NS 100 ML IV SCH (06:00)
[2024-08-30 10:01] VITALS: BP 103/72
== END 2024-08-30 10:42 | disposition home or self-care (01) ==
LOC: ATC 02:47
DX: R78.81 Bacteremia (principal); B95.61 Methicillin susceptible Staphylococcus aureus infection as the cause of diseases classified elsewhere; L03.211 Cellulitis of face; L20.9 Atopic dermatitis, unspecified; J45.909 Unspecified asthma, uncomplicated; F17.210 Nicotine dependence, cigarettes, uncomplicated; Z87.442 Personal history of urinary calculi; Z79.899 Other long term (current) drug therapy
CPT/HCPCS: 96365; J0696

== ENCOUNTER 2024-08-31 01:55 | Day surgery (SDC) | payer OTHER ==
[2024-08-31] MEDS ORDERED: CefTRIAXone Sodium 2,000 MG in NS 100 ML IV SCH (06:00)
[2024-08-31 09:49] VITALS: BP 111/61
== END 2024-08-31 10:46 | disposition home or self-care (01) ==
LOC: ATC 01:55
DX: R78.81 Bacteremia (principal); B95.61 Methicillin susceptible Staphylococcus aureus infection as the cause of diseases classified elsewhere; L20.9 Atopic dermatitis, unspecified; F17.210 Nicotine dependence, cigarettes, uncomplicated; Z79.899 Other long term (current) drug therapy
CPT/HCPCS: 96365; J0696

== ENCOUNTER 2024-09-01 02:34 | Day surgery (SDC) | payer OTHER ==
[2024-09-01] MEDS ORDERED: CefTRIAXone Sodium 2,000 MG in NS 100 ML IV SCH (06:00)
[2024-09-01 09:49] VITALS: BP 137/79
== END 2024-09-01 10:31 | disposition home or self-care (01) ==
LOC: ATC 02:34
DX: R78.81 Bacteremia (principal); B95.61 Methicillin susceptible Staphylococcus aureus infection as the cause of diseases classified elsewhere; J45.909 Unspecified asthma, uncomplicated; G89.29 Other chronic pain; Z79.899 Other long term (current) drug therapy; F17.210 Nicotine dependence, cigarettes, uncomplicated
CPT/HCPCS: 96365; J0696

== ENCOUNTER 2024-09-02 00:45 | Day surgery (SDC) | payer OTHER ==
[~2024-09-02 00:45] MED LIST changes: +CefTRIAXone Sodium 2,000 MG in NS 100 ML IV SCH
[2024-09-02 09:30] VITALS: BP 101/73
== END 2024-09-02 10:25 | disposition home or self-care (01) ==
LOC: ATC 00:45
DX: R78.81 Bacteremia (principal); B95.61 Methicillin susceptible Staphylococcus aureus infection as the cause of diseases classified elsewhere; F17.210 Nicotine dependence, cigarettes, uncomplicated; Z79.899 Other long term (current) drug therapy
CPT/HCPCS: 96365; J0696

== ENCOUNTER 2024-09-03 00:27 | Day surgery (SDC) | payer OTHER ==
[~2024-09-03 00:27] MED LIST changes: -CefTRIAXone Sodium 2,000 MG in NS 100 ML IV SCH
[2024-09-03] MEDS ORDERED: CefTRIAXone Sodium 2,000 MG in NS 100 ML IV SCH (01:00)
[2024-09-03 09:33] VITALS: BP 118/88
== END 2024-09-03 10:05 | disposition home or self-care (01) ==
LOC: ATC 00:27
DX: R78.81 Bacteremia (principal); B95.61 Methicillin susceptible Staphylococcus aureus infection as the cause of diseases classified elsewhere; J45.909 Unspecified asthma, uncomplicated; F17.210 Nicotine dependence, cigarettes, uncomplicated; L03.211 Cellulitis of face; Z79.899 Other long term (current) drug therapy
CPT/HCPCS: 96365; J0696